=== PATIENT | female | born 1940 | race Two or more races ===

== ENCOUNTER 2024-12-22 13:27 | Outpatient (CLI) | payer OTHER | END 2024-12-22 13:33 | disposition home or self-care (01) | LOC: RAD 13:27 | PROVIDERS: ATTEND Physical Medicine & Rehabilitation Hospice and Palliative Medicine | DX: M54.50 Low back pain, unspecified (principal); M53.3 Sacrococcygeal disorders, not elsewhere classified; M25.562 Pain in left knee ==